=== PATIENT | female | born 1945 | race Caucasian/White ===

== ENCOUNTER 2018-11-06 11:08 | Emergency (ER) | payer MEDICARE ==
[~2018-11-06] VITALS: Ht 170.2 cm; Wt 72.6 kg
[2018-11-06] MEDS ORDERED: REGLAN10 MG PO (14:28)
== END 2018-11-06 14:45 | disposition home or self-care (01) ==
LOC: ED 11:08
DX: G43.909 Migraine, unspecified, not intractable, without status migrainosus (principal)
CPT/HCPCS: 96361; 96374; 96375; 99284-25; J1100; J1200; J2765; J7030